=== PATIENT | female | born 1930 | race Caucasian/White ===

== ENCOUNTER 2016-12-07 17:47 | Inpatient (IN) | payer OTHER ==
[~2016-12-07] VITALS: Ht 167.6 cm; Wt 75.1 kg
--- NOTE | ~2016-12-07 | P ---
[facility] [place] [address] PROCEDURE REPORT Name: MICHELLE RAE Room #: 216-P ADM IN M.R.#: [id number] Admission: 12/07/16 Attend Phys: Prakash Desai MD Discharge: Date of : 34 Report #: [id number] THIS REPORT FOR: //name// CC: Prakash Pangnova DATE OF SERVICE: 12/08/2016 PROCEDURE: AV node ablation. PREOPERATIVE DIAGNOSIS: Atrial fibrillation with rapid ventricular response. POSTOPERATIVE DIAGNOSIS: Atrial fibrillation with rapid ventricular response. HISTORY OF PRESENT ILLNESS: The patient is an 85-year-old with a long-standing history of recurrent atrial fibrillation, status post cardioversion back in July, but then had recurrence of atrial fibrillation despite Multaq therapy. She was recently hospitalized at [facility] with congestive heart failure secondary to atrial fibrillation with rapid ventricular response. She was loaded with IV amiodarone and then underwent a cardioversion on the , but was back in atrial fibrillation after a few days. She continues to have AFib with rapid ventricular response and when I saw her in clinic yesterday, she was with rates of 140-150 beats per minute. As such, she was admitted overnight to rate control her and she is here today for an AV node ablation. Her most recent echocardiogram while admitted at [facility] demonstrated an EF of 60-65%. ANESTHESIA: The patient underwent MAC anesthesia with no anesthesia related complications. DESCRIPTION OF PROCEDURE: The patient underwent informed consent. We discussed the details of the procedure including the risks, which include but not limited to bleeding, infection, vascular damage as well as stroke or OH. She understood these risks and is willing to proceed. As such, she is brought to the EP laboratory in a fasting and sedated state and prepped and draped in a sterile fashion. Her Biotron[employer] pacemaker was interrogated and found to be functioning normally. She was programmed to a VVI 40 mode. Next, I injected 5 mL of lidocaine at the right groin and obtained access to the right femoral vein using the modified Seldinger technique. Initially, an 8-Spanish short sheath was placed and this was exchanged for an SR0 sheath. Next, an 8 mm [employer] [place] ablation catheter was placed up into the right atrium and then into the right ventricle. Continuous drag lesion was performed and initially no heart block was induced. I then ____ slightly lower at a site where there was primarily atrial signals and small ventricular signal and at this site there was complete heart block within a few seconds. The patient was monitored for a total of 20 minutes and there was no return of conduction. The pacemaker was reinterrogated and found to be functioning normally and the device programmed to a VVI-CLS mode [facility] [address] [place] [address] PROCEDURE REPORT Name: KYRAMICHELLE Jeremiah Room #: 216-P [facility] IN M.R.#: [id number] Admission: 12/07/16 Attend Phys: Prakash Desai MD Discharge: Date of : 34 Report #: [id number] at 80 beats per minute. As such, catheters and sheaths were pulled. Hemostasis was obtained and the patient woke up neurologically and hemodynamically intact with no complications and no significant bleeding. CONCLUSIONS: 1. Successful AV node ablation. 2. Successful pacemaker reprogramming. By: [id number] Prakash Desai MD /nt
--- NOTE | ~2016-12-07 | D ---
[facility] [place] [address] DISCHARGE SUMMARY Name: MICHELLE RAE Room #: 216-P [facility] IN M.R.#: [id number] Admission: 12/07/16 Attend Phys: Prakash Desai MD Discharge: 12/09/16 Date of : 34 Report #: [id number] THIS REPORT FOR: //name// CC: Prakash Melendrez FINAL DIAGNOSES: 1. Atrial fibrillation, status post atrioventricular node ablation. 2. Sick sinus syndrome, history of pacemaker insertion. 3. History of diastolic heart failure. 4. Hypertension. HOSPITAL COURSE: Please see the original H and P for full details. The patient with chronic atrial fibrillation with uncontrolled heart rates. She was treated with amiodarone, metoprolol and Cardizem, but the heart rates were still uncontrolled. She was symptomatic with dyspnea. The patient underwent ablation of the AV node by Dr. Desai. She has a prior history of pacemaker insertion. She remains hemodynamically stable with heart rates in the 80 beats per minute range. She is stable for discharge and will follow up with Dr. Desai. FINAL DISPOSITION: Medications include Eliquis 5 mg twice a day, Lopressor 50 mg twice a day, calcium, Arimidex 1 tablet daily, furosemide 40 mg daily and multivitamins. <ELECTRONICALLY SIGNED> By: Chun Quinones MD 12/10/16 0836 [id number] Chun Quinones MD /mary
[~2016-12-07 17:47] MED LIST: ADULT LOW DOSE81 MG PO; ASPIRIN325 PO; CALTRATE PLUS1 EACH PO; DILTIAZEM ER120 M1 PO; ESTRACE0.5 MG PO; GLUCOSA-CHOND-1 EACH PO; MAGNES; MELOXICAM7.5 MG PO; OMEPRAZOLE20 MG PO
[2016-12-07 19:27] VITALS: BP 126/71
[2016-12-07 21:30] VITALS: BP 126/71
[2016-12-07 23:10] VITALS: BP 137/76
[2016-12-07 23:15] VITALS: BP 137/76
[2016-12-08] MEDS ORDERED: PACERONE 200 M200 M1 PO (01:31)
[2016-12-08] MEDS ORDERED: ARIMIDEX1 MG PO (01:32)
[2016-12-08] MEDS ORDERED: CALCIUM 600 +1 EAC1 PO (01:32)
[2016-12-08] MEDS ORDERED: XGEVA120 MG/1.7 SUBQ (01:34)
[2016-12-08] MEDS ORDERED: VITAMIN D2000 UNIT PO (01:35)
[2016-12-08] MEDS ORDERED: ELIQUIS5 MG PO (01:35)
[2016-12-08] MEDS ORDERED: LOPRESSOR50 PO (01:35)
[2016-12-08] MEDS ORDERED: THERA-M TABLET1 EACH PO (01:37)
[2016-12-08] MEDS ORDERED: CARTIA XT180 M1 PO (01:37)
[2016-12-08] MEDS ORDERED: CARTIA XT240 M1 PO (01:37)
[2016-12-08] MEDS ORDERED: LASIX 40 MG TAB40 M2 PO (01:38)
[2016-12-08 03:08] VITALS: BP 102/67
[2016-12-08 07:42] VITALS: BP 123/78
[2016-12-08 11:11] LABS: HEMATOCRIT 40.5 % (37.0-47.0); HEMOGLOBIN 13.6 gm/dL (12.0-15.0); MCHC 33.7 g/dL (28.0-37.0); MCV 88.9 fL (80.0-100.0); RBC 4.55 mil/uL (4.20-5.00); RDW 15.4 % (10.5-14.5); WBC 7.6 thou/uL (4.0-11.0)
[2016-12-08 11:26] LABS: CALCIUM 9.3 mg/dL (8.5-10.1); CREATININE 1.1 mg/dL (0.6-1.0); POTASSIUM 4.2 mmol/L (3.5-5.1)
[2016-12-08 11:29] LABS: APTT 27.6 Seconds (24.5-32.8); INR 1.1; PROTIME 11.4 Seconds (9.3-11.4)
[2016-12-08 15:31] VITALS: BP 115/69
[2016-12-08 19:59] VITALS: BP 144/79
[2016-12-09 03:10] LABS: ABSOLUTE NEUTROPHILS 4.5 thou/uL (1.4-8.2); BASOPHILS 0.8 % (0.0-2.0); EOSINOPHILS 1.7 % (0.0-3.0); HEMATOCRIT 40.4 % (37.0-47.0); HEMOGLOBIN 13.2 gm/dL (12.0-15.0); LYMPHOCYTES 26.7 % (24.0-44.0); MCH 29.3 pg (26.0-34.0); MCHC 32.7 g/dL (28.0-37.0); MCV 89.8 fL (80.0-100.0); MONOCYTES 10.2 % (1.0-8.0); PLATELET COUNT 252 thou/uL (150-400); POLYS 60.6 % (36.0-66.0); RDW 15.7 % (10.5-14.5); WBC 7.4 thou/uL (4.0-11.0)
[2016-12-09 03:17] LABS: MANUAL DIFF NO
[2016-12-09 03:21] LABS: CALCIUM 8.7 mg/dL (8.5-10.1); POTASSIUM 4.2 mmol/L (3.5-5.1)
[2016-12-09 03:53] VITALS: BP 122/78
[2016-12-09 07:34] VITALS: BP 135/81
[2016-12-09 10:31] VITALS: BP 136/76
[2016-12-09 12:02] VITALS: BP 136/76
== END 2016-12-09 12:15 | disposition home or self-care (01) | DRG 274 ==
LOC: 2N 17:47
PROVIDERS: Internal Medicine Cardiovascular Disease; Nurse Practitioner Gerontology
PROC: 4B02XSZ Measurement of Cardiac Pacemaker, External Approach (ICD-10-PCS; principal; 2016-12-08)
PROC: 02583ZZ Destruction of Conduction Mechanism, Percutaneous Approach (ICD-10-PCS; principal; 2016-12-08)
DX: I48.91 Unspecified atrial fibrillation (principal); I50.30 Unspecified diastolic (congestive) heart failure; I49.5 Sick sinus syndrome; I11.0 Hypertensive heart disease with heart failure; Z95.0 Presence of cardiac pacemaker
CPT/HCPCS: 10081; 62110; 62900; 70005